=== PATIENT | female | born 1970 | race Caucasian/White ===

== ENCOUNTER 2018-04-14 10:36 | Emergency (ER) | payer BC ==
[2018-04-14] MEDS: ACETAMINOPHEN 500 MG TAB PO (10:51)
== END 2018-04-14 11:54 | disposition home or self-care (01) ==
LOC: E/R 10:36
DX: S13.9XXA Sprain of joints and ligaments of unspecified parts of neck, initial encounter (principal); V87.7XXA Person injured in collision between other specified motor vehicles (traffic), initial encounter
CPT/HCPCS: 99283